=== PATIENT | male | born 1985 | race Caucasian/White ===

== ENCOUNTER 2017-03-30 10:43 | Emergency (ER) | payer BC, OTHER ==
[2017-03-30 11:02] VITALS: BP 124/84; PULSE 103; TEMP 99.1; BMI 27.9
--- NOTE | 2017-03-30 11:35 | PDOC ---
History of Present Illness - General Chief Complaint: Cold Symptoms Stated Complaint: flu Time Seen by Provider: 03/30/17 10:45 - History of Present Illness Initial Comments: 03/30/17 11:52 Chief complaint: Fever, head congestion, nonproductive cough History of present illness: As noted above. Brother has documented influenza. Review of systems: No chest pain, shortness of breath, nausea, vomiting, diarrhea. Past medical history: Renal transplant, on immunosuppressant therapy chronically. 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 Social/family history: Brother has documented influenza. Denies drugs alcohol or tobacco. Otherwise negative Physical exam: Alert oriented well-developed no acute distress cooperative Afebrile, vital signs normal HEENT: Significant nasal congestion is present without discharge. Ears and throat clear. Conjunctivae clear. PERRLA Neck supple without bruit mass or nodes Chest clear with full breath sounds throughout bilaterally, no wheezes rales or rhonchi. Respiratory rate and oxygen saturation normal CV regular without murmur rub or gallop pulses full and symmetric no JVD or edema no bruits Abdomen soft nontender without mass or organomegaly follow sounds normal nondistended Extremities no CCE Skin clear, no rash, adequate turgor and wet mucous membranes Neurological intact Impression: Probable influenza Plan: Rest fluids Tylenol and Tamiflu. Recheck immediately if symptoms worsen, especially if there is chest pain, shortness of breath, or vomiting. Otherwise see primary physician for follow-up 2 days. Fully ambulatory and in no significant pain or other distress upon discharge with family Past History - Past Medical History Allergies/Adverse Reactions: Allergies Allergy/AdvReac Type Severity Reaction Status Date / Time No Known Allergies Allergy Verified 03/30/17 10:57 Home Medications: Ambulatory Orders Mycophenolate Sodium [Myfortic] 540 mg PO BID 03/30/17 Tacrolimus [Prograf] 2 mg PO BID 03/30/17 COPD: No - Suicide/Smoking/Psychosocial Hx Smoking History: Never smoked Have you smoked in the past 12 months: No Information on smoking cessation initiated: No Hx Alcohol Use: No Drug/Substance Use Hx: No Substance Use Type: None *Physical Exam - Vital Signs Last Vital Signs Temp Pulse Resp BP Pulse Ox 99.1 F 103 H 20 124/84 97 03/30/17 10:44 03/30/17 10:44 03/30/17 10:44 03/30/17 10:44 03/30/17 10:44 *DC/Admit/Observation/Transfer Diagnosis at time of Disposition: Viral upper respiratory tract infection with cough - Discharge Dispostion Disposition: HOME Condition at time of disposition: Stable Admit: No - Referrals - Patient Instructions Printed Discharge Instructions: DI for Viral Upper Respiratory Infection -- Adult Additional Instructions: Rest, fluids, continue Tamiflu, Tylenol. Return to ER if symptoms worsen, especially if there is chest pain, shortness of breath, or persistent vomiting. Otherwise see primary physician in one to 2 days for follow-up. - Post Discharge Activity Forms/Work/School Notes: Back to Work
== END 2017-03-30 11:59 | disposition home or self-care (01) ==
LOC: FER 10:43
DX: J06.9 Acute upper respiratory infection, unspecified (principal); B97.89 Other viral agents as the cause of diseases classified elsewhere; R05 Cough
CPT/HCPCS: 99282-25